=== PATIENT | female | born 1945 | race Caucasian/White ===

== ENCOUNTER 2017-09-15 07:36 | Day surgery (SDC) | payer OTHER ==
[~2017-09-15] VITALS: Ht 153.7 cm; Wt 93.4 kg
[~2017-09-15 07:36] MED LIST: COLACE100 MG PO; ESTRACE42.5 GM VG; LOPRESSOR50 MG PO; MIRALAX119 GM PO; MOTRIN IB200 MG PO; PRILOSEC20 MG PO
[2017-09-15 08:45] VITALS: BP 139/74
[2017-09-15 11:10] VITALS: BP 171/77
== END 2017-09-15 12:50 | disposition home or self-care (01) ==
LOC: SDC 07:36
DX: C51.9 Malignant neoplasm of vulva, unspecified (principal); E78.00 Pure hypercholesterolemia, unspecified; I10 Essential (primary) hypertension; K21.9 Gastro-esophageal reflux disease without esophagitis
CPT/HCPCS: 88307; J0330; J0690; J1100; J2405; J3010; J7120; Q0175; S0020